=== PATIENT | female | born 1935 | race Caucasian/White ===

== ENCOUNTER 2017-12-23 11:01 | Emergency (ER) | payer MEDICARE, OTHER ==
[~2017-12-23] VITALS: Ht 154.9 cm; Wt 50.8 kg
[2017-12-23 11:23] VITALS: BP 132/65
[2017-12-23] MEDS ORDERED: METFORMIN HCL1000 M1 ORAL (11:33)
[2017-12-23] MEDS ORDERED: LISINOPRIL40 MG ORAL (11:33)
[2017-12-23] MEDS ORDERED: VITAMIN C500 M1 ORAL (11:33)
[2017-12-23] MEDS ORDERED: METOPROLOL TART50 M1 ORAL (11:33)
[2017-12-23] MEDS ORDERED: POTASSIUM99 M3 PO (11:33)
[2017-12-23] MEDS ORDERED: AMLODIPINE BESY10 MG ORAL (11:33)
[2017-12-23] MEDS ORDERED: ASPIR 8181 MG ORAL (11:33)
[2017-12-23 11:55] LABS: BASOPHILS % (AUTO) 0.7 % (0.0-2.0); EOSINOPHILS % (AUTO) 2.8 % (0.0-3.0); HEMATOCRIT 39.2 % (37.0-47.0); HEMOGLOBIN 12.4 G/DL (12.0-16.0); LYMPHOCYTES % (AUTO) 15.6 % (20.0-45.0); MEAN CORPUSCULAR VOLUME 82 FL (80-99); NEUTROPHILS % (AUTO) 75.9 % (45.0-75.0); PLATELET COUNT 604 K/UL (150-450); RED BLOOD COUNT 4.77 M/UL (4.20-5.40); RED CELL DISTRIBUTION WIDTH 13.6 % (11.6-14.8); WHITE BLOOD COUNT 10.4 K/UL (4.8-10.8)
[2017-12-23 11:57] LABS: ANION GAP 12 mmol/L (5-15); BLOOD UREA NITROGEN 13 mg/dL (7-18); CALCIUM 9.1 MG/DL (8.5-10.1); CARBON DIOXIDE 27 MMOL/L (21-32); CHLORIDE 98 MMOL/L (98-107); CREATININE 0.9 MG/DL (0.55-1.30); POTASSIUM 3.5 MMOL/L (3.5-5.1); SODIUM 137 MMOL/L (136-145)
[2017-12-23 12:02] LABS: ALANINE AMINOTRANSFERASE 24 U/L (12-78); ALBUMIN 3.3 G/DL (3.4-5.0); ALBUMIN/GLOBULIN RATIO 0.6 (1.0-2.7); ALKALINE PHOSPHATASE 90 U/L (46-116); ASPARTATE AMINO TRANSFERASE 20 U/L (15-37); BILIRUBIN,TOTAL 0.3 MG/DL (0.2-1.0)
--- NOTE | 2017-12-23 12:15 | Emergency Room Report ---
History of Present Illness General Chief Complaint: Gastrointestinal Bleed Source: Patient, Caregiver Present Illness HPI 82-year-old female brought in by caregiver for 3 days of allegedly bright red blood in stool However did not have any blood in stool or dark blood today no Recent history of melena Has known history of hemorrhoid Does not take excessive amounts of ibuprofen, Motrin or other NSAID No history of upper or lower GI bleed denies history of abdominal pain, nausea or vomiting Allergies: Coded Allergies: CAPTOPRIL (Verified Allergy, Unknown, 12/23/17) Patient History Past Medical History: none Past Surgical History: none Pertinent Family History: none Social History: Denies: smoking, alcohol use, drug use Now: No Immunizations: UTD Reviewed Nursing Documentation: PMH: Agreed, PSxH: Agreed Nursing Documentation-PMH Hx Hypertension: Yes Hx Diabetes: Yes Review of Systems All Other Systems: negative except mentioned in HPI Physical Exam Vital Signs Date Time Temp Pulse Resp B/P (MAP) Pulse Ox O2 Delivery O2 Flow Rate FiO2 12/23/17 11:16 97.7 110 18 161/77 97 Room Air 97.7 Sp02 EP Interpretation: reviewed, normal General Appearance: normal inspection, well appearing, no apparent distress, alert, GCS 15, non-toxic Head: normocephalic, atraumatic Eyes: bilateral eye PERRL, bilateral eye EOMI ENT: normal ENT inspection, hearing grossly normal, normal pharynx, no angioedema, normal voice, TMs + canals normal, uvula midline, moist mucus membranes Neck: normal inspection, full range of motion, supple, thyroid normal, no meningismus, no bony tend Respiratory: normal inspection, lungs clear, normal breath sounds, no rhonchi, no respiratory distress, no retraction, no accessory muscle use, no wheezing, speaking full sentences Cardiovascular #1: regular rate, rhythm, no edema, no JVD, normal capillary refill Gastrointestinal: normal inspection, normal bowel sounds, non tender, soft, no mass, no peritonitis, non-distended, no guarding, no hernia, no pulsatile mass Rectal: hemorrhoids, other - No jackie bleeding. No melena. palpable hemorrhoid , non-tender. Genitourinary: no CVA tenderness Musculoskeletal: normal inspection, back normal, normal range of motion, no calf tenderness, pelvis stable, Carlo's Sign negative Neurologic: normal inspection, alert, oriented x3, responsive, program rep III-XII nml as tested, motor strength/tone normal, cerebellar normal, normal gait, speech normal Psychiatric: normal inspection, judgement/insight normal, mood/affect normal, no suicidal/homicidal ideation, no delusions Skin: normal inspection, normal color, no rash Lymphatic: normal inspection, no adenopathy Medical Decision Making Diagnostic Impression: Primary Impression: Hemorrhoid Qualified Codes: K64.9 - Unspecified hemorrhoids ER Course VSS, afebrile Likely source of rectal bleed is hemorrhoid, not prolapsed No obvious bleeding today No melena CBC stable, coags normal patient reassured Will discharge with topical medication for hemorrhoids as needed She given copy of lab test for PMD follow-up Discharged with caregiver ER course: Patient has remained stable during ED stay. Disposition: Patient is to be discharged to home. Prescriptions given are prep-H Patient is instructed to follow up with their primary care doctor within 5 days. Strict return precautions discussed with patient such as fever, chills, worsening/severe pain, nausea, vomiting, which may indicate severe illness. Patient verbalizes understanding and agrees with plan. Please note that this Emergency Department Report was dictated using [employer] software, occasionally this can lead to erroneous entry secondary to interpretation by the dictation equipment Last Vital Signs Date Time Temp Pulse Resp B/P (MAP) Pulse Ox O2 Delivery O2 Flow Rate FiO2 12/23/17 11:23 97.9 99 24 132/65 100 Room Air 97.9 Status: improved Disposition: HOME, SELF-CARE Referrals: NON PHYSICIAN (PCP) TWILA BAER M.D. Dec 23, 2017 12:15
[2017-12-23] MEDS ORDERED: PREPARATION H O28 GM TOPIC (12:16)
[2017-12-23 12:25] LABS: APPEARANCE,URINE CLEAR; BILIRUBIN, URINE NEGATIVE (NEGATIVE); COLOR,URINE PALE YELLOW; GLUCOSE, URINE (UA) NEGATIVE (NEGATIVE); KETONES,URINE NEGATIVE (NEGATIVE); LEUKOCYTE ESTERASE ,URINE 3+ (NEGATIVE); NITRITE,URINE NEGATIVE (NEGATIVE); PH,URINE 6 (4.5-8.0); PROTEIN,URINE 4+ (NEGATIVE); UROBILINOGEN,URINE NORMAL MG/DL (0.0-1.0)
[2017-12-23 12:57] VITALS: BP 141/65
[2017-12-23 12:58] VITALS: BP 141/65
[2018-01-05] MEDS ORDERED: NITROFURANTOIN100 M2 ORAL (16:40)
== END 2017-12-23 13:00 ==
LOC: EMR 11:42
DX: K64.4 Residual hemorrhoidal skin tags (principal); I10 Essential (primary) hypertension; E11.9 Type 2 diabetes mellitus without complications; Z88.8 Allergy status to other drugs, medicaments and biological substances
CPT/HCPCS: 36415; 80053; 81003; 83690; 85025; 85610; 86850; 86900; 86901; 87086; 87181; 99282